=== PATIENT | female | born 1965 | race Caucasian/White ===

== ENCOUNTER 2016-11-24 11:32 | Emergency (ER) | payer SELFPAY ==
[~2016-11-24] VITALS: Ht 154.9 cm; Wt 107.0 kg
[~2016-11-24 11:32] MED LIST: Atorvastatin Calcium PO; Hctz PO; LOS50T PO; METO50TA7 PO
[2016-11-24] MEDS ORDERED: SODIUM CHLORIDE 0.9% 1,000 ML IV ONE (11:53)
[2016-11-24] MEDS ORDERED: diphenhdrAMINE HCL 50 MG/1 ML VL IV ONE (12:00)
[2016-11-24] MEDS ORDERED: methylPREDNISolone SOD SUCC 125 MG/2 ML VL IV ONE (12:00)
[2016-11-24] MEDS ORDERED: cloNIDine HCL 0.1 MG TAB PO ONE (12:45)
[2016-11-24 13:18] LABS: Basophils # (auto) 0 uL; Basophils % (auto) 0.5 % (0.0-2.0); DEFINITIVE VIEW TRANSMISSION; Eosinophils # (auto) 0.2 uL; Hematocrit 40.9 % (36.0-46.0); Hemoglobin 13.1 g/dL (12.2-16.2); Lymphocytes # (auto) 1.7 uL; Lymphocytes % (auto) 23.5 % (10.0-50.0); Mean Corpuscular Hemoglobin 26.8 pg (28.0-32.0); Mean Corpuscular Volume 83.9 fL (80.0-100.0); Mean Platelet Volume 7.9 fL (7.4-10.4); Monocytes # (auto) 0.4 uL; Monocytes % (auto) 5.4 % (0.0-12.0); Neutrophils # (auto) 5.1 uL; Neutrophils % (auto) 68.6 % (37.0-80.0); Platelet Count (auto) 294 10^3/uL (140-450); Red Cell Distribution Width 14.5 % (11.6-16.0); White Blood Cell 7.4 10^3/uL (4.4-10.8)
[2016-11-24 13:53] LABS: Albumin 4.4 g/dL (3.4-5.0); BUN/Creatinine Ratio 20.8; Bilirubin, Total 0.6 mg/dL (0.2-1.0); Calcium 10.6 mg/dL (8.5-10.1); Potassium 4.1 mmol/L (3.5-5.1); Total Protein 7.6 g/dL (6.4-8.2)
[2016-11-24 15:24] VITALS: BP 152/78
[2016-11-24 16:00] LABS: Urine Bilirubin Negative (Negative); Urine Blood 3+ /uL (Negative); Urine Color Red (Yellow); Urine Glucose Normal (Normal); Urine Ketone Negative (Negative); Urine Mucus FEW (None Seen); Urine Nitrite Negative (Negative); Urine RBC 106 /hpf (0 - 4); Urine Squamous Epithelial Cell FEW /hpf (<5); Urine Urobilinogen Normal (Negative)
== END 2016-11-24 15:25 | disposition home or self-care (01) ==
LOC: EDUNIT# 11:32 → ER 11:36
DX: T78.40XA Allergy, unspecified, initial encounter (principal); I16.0 Hypertensive urgency; Z88.1 Allergy status to other antibiotic agents; Z79.899 Other long term (current) drug therapy; I11.0 Hypertensive heart disease with heart failure; I50.9 Heart failure, unspecified
CPT/HCPCS: 36415; 80053; 81001; 85025; 94761; 96374; 96375; 99284; J1200; J2930; J7030

== ENCOUNTER 2017-08-08 16:13 | Emergency (ER) | payer SELFPAY ==
[~2017-08-08] VITALS: Ht 154.9 cm; Wt 96.6 kg
[2017-08-08] MEDS ORDERED: cloNIDine HCL 0.1 MG TAB ONE (16:27)
[2017-08-08] MEDS ORDERED: cloNIDine HCL 0.1 MG TAB PO ONE (16:45)
[2017-08-08] MEDS ORDERED: KETOROLAC TROMETH 60MG/2ML VIAL IM ONE (18:15)
[2017-08-08 18:19] VITALS: BP 159/88
== END 2017-08-08 18:31 | disposition home or self-care (01) ==
LOC: ER 16:13
DX: M54.42 Lumbago with sciatica, left side (principal); I10 Essential (primary) hypertension; Z88.1 Allergy status to other antibiotic agents; Z79.899 Other long term (current) drug therapy; Z98.51 Tubal ligation status; Z90.49 Acquired absence of other specified parts of digestive tract
CPT/HCPCS: 73502; 96372; 99284; J1885